=== PATIENT | male | born 1955 | race Caucasian/White ===

== ENCOUNTER 2017-01-27 06:17 | Day surgery (SDC) ==
[2017-01-27 08:37] LABS: INR 1.02; PROTIME 10.4 Seconds (9.2-11.7)
[2017-01-27 12:07] VITALS: BP 111/62
--- NOTE | 2017-01-27 15:59 | Diag Imaging Result Document ---
PROCEDURE NAME: CT GUIDED BX LIVER - 01/27/2017 CT-GUIDED LIVER BIOPSY: COMPARISON: CT chest without contrast from an outside facility dated 01/23/2017. FINDINGS: Risks, benefits, and alternatives were discussed with the patient, and informed consent was obtained. The patient was prepped and draped in sterile fashion and placed in a supine position. Local anesthesia was achieved with 1% lidocaine solution. As was seen on the recent CT chest, there are innumerable low dense hepatic lesions throughout the right and left hepatic lobes suggesting metastatic disease. Using CT guidance, an 18-gauge coaxial biopsy needle system was used to obtain four 2.3 cm core biopsies from one of the lesions in the left hepatic lobe. There were no known complications. IMPRESSION: Technically successful CT-guided liver biopsy.
== END 2017-01-27 12:20 | disposition home or self-care (01) ==
LOC: CT 06:17
PROVIDERS: ATTEND Internal Medicine
DX: C78.7 Secondary malignant neoplasm of liver and intrahepatic bile duct (principal); R93.2 Abnormal findings on diagnostic imaging of liver and biliary tract; D64.9 Anemia, unspecified; Z79.899 Other long term (current) drug therapy; Z79.51 Long term (current) use of inhaled steroids; C80.1 Malignant (primary) neoplasm, unspecified
CPT/HCPCS: 47000; 77012; 85610; 85730; 88307

== ENCOUNTER 2017-02-13 10:45 | Observation (INO) ==
--- NOTE | 2017-02-13 13:36 | CONSULTATION ---
DATE OF CONSULTATION: 02/13/2017 REFERRING PHYSICIAN: Dr. Jean Mistry. CHIEF COMPLAINT: Evaluation for lung tumor and COPD. HISTORY OF PRESENTING ILLNESS: A 62-year-old man with left lung mass in the lingula shown on chest CT scan recently and liver mets, status post liver biopsy that was inconclusive. I had a discussion with Dr. Mistry and also the pathology report also was reviewed. The report is from 01/27/2017. 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 He is an active smoker. History of pacemaker and carotid disease. Seeing in [facility] and was there 2 months ago. PAST MEDICAL HISTORY: Insomnia. 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 Active smoker. Permanent pacemaker. Coronary artery disease. PAST SURGICAL HISTORY: Liver biopsy recently. ALLERGIES: No known drug allergies. HOME MEDICATIONS: 1. Restoril. 2. Carafate. 3. Protonix. 4. Lasix. 5. Fentanyl. 6. Coreg. 7. Symbicort. 8. Xanax. 9. Advair. SOCIAL HISTORY: Smoker. He lives alone. His sister will be present during evaluation for bronchoscopy tomorrow. REVIEW OF SYSTEMS: As detailed in history of presenting illness, otherwise, noncontributory. FAMILY HISTORY: COPD. PHYSICAL EXAMINATION: Vital signs noted. Head and Neck: Trachea midline. Chest: Reduced air entry slightly. Cardiac: S1, S2. Pacemaker. Lower limb examination: No pedal edema. Abdomen: Nontender. Neurologic: Awake and communicative. LABORATORY AND INVESTIGATIONS: Recent workup from the hospital records were reviewed. Chest CT scan imaging reviewed. PFT from the office records reviewed. ASSESSMENT AND PLAN: A 62-year-old man with left lung mass, liver mets, with neuroendocrine liver masses by pathology, being evaluated for bronchoscopy and has chronic obstructive pulmonary disease. I agree with bronchodilators. We will arrange the patient for bronchoscopy as an inpatient for tomorrow morning at 10:30. Thank for the courtesy of this consultation.
[2017-02-13] MEDS ORDERED: CARAFATE LIQUID PO PRN (19:50)
[2017-02-13] MEDS ORDERED: NORCO-5 PO PRN (19:53)
[2017-02-13] MEDS ORDERED: ZOFRAN PO PRN (19:54)
[2017-02-13] MEDS ORDERED: SYMBICORT 160/4.5 MICROGM INHALER INH SCH (20:15)
[2017-02-13] MEDS: COLACE PO SCH (21:04)
[2017-02-13] MEDS: LASIX PO SCH (21:04)
[2017-02-13] MEDS: RESTORIL PO SCH ×2 (21:05→21:06)
[2017-02-13] MEDS: XANAX PO SCH (21:05)
[2017-02-13] MEDS: COREG PO SCH (21:05)
[2017-02-14] MEDS ORDERED: PROTONIX PO SCH (07:00)
[2017-02-14] MEDS ORDERED: ADVAIR INH SCH (09:00)
[2017-02-14] MEDS ORDERED: DURAGESIC 75 MICROGM/HR PATCH TD SCH (09:00)
[2017-02-14] MEDS ORDERED: EXFORGE 5/160 PO SCH (09:00)
[2017-02-14] MEDS ORDERED: EPINEPHRINE ONE (09:19)
[2017-02-14] MEDS ORDERED: XYLOCAINE 2% ONE (09:19)
[2017-02-14] MEDS ORDERED: XYLOCAINE 2% VISCOUS ONE (09:20)
[2017-02-14] MEDS ORDERED: SODIUM CHLORIDE 0.9% 20 ML ONE (09:20)
[2017-02-14] MEDS ORDERED: XYLOCAINE 2% MISC ONE (09:30)
[2017-02-14] MEDS ORDERED: EPINEPHRINE INJ ONE (10:01)
[2017-02-14] MEDS ORDERED: XYLOCAINE 2% INJ ONE (10:01)
[2017-02-14] MEDS ORDERED: VERSED ONE (10:34)
[2017-02-14] MEDS ORDERED: DIPRIVAN 1% ONE (10:35)
[2017-02-14] MEDS ORDERED: LR 1,000 ML ONE (10:46)
[2017-02-14] MEDS ORDERED: XYLOCAINE-MPF 2% ONE (10:46)
[2017-02-14] MEDS ORDERED: ANESTHESIA PB SET 88 IN 5742 ONE (10:46)
--- NOTE | 2017-02-14 10:46 | OPERATIVE NOTE ---
PROCEDURE DATE: 02/14/2017 INDICATION: Lung mass in the lingula with liver metastasis. REFERRING PHYSICIAN: Dr. Jean Mistry. PROCEDURE: Flexible bronchoscopy. DESCRIPTION OF PROCEDURE IN DETAIL: Conscious sedation administered through anesthesia and fluoroscopy scanning used for sampling. Flexible bronchoscope passed through right nostril with local anesthesia. Normal vocal cord movements. All major segments visualized. There is more than 90% blockage of the lingular segment signifying likely tumor. It is easy to ooze blood, but no significant bleeding happened. Empirically we instilled diluted epinephrine to prevent significant bleeding. We did brushings from the area in the lingula and then we did endobronchial biopsies and transbronchial biopsies, again with fluoroscopy scanning and guidance. No major bleeding was noticed by the time pulling the scope, and we did washings from all major segments and sent this for cytology and pathology. The patient tolerated the procedure well. Fluoroscopy scanning showed no pneumothorax. An official chest x-ray is requested. Dr. Mistry and waiting to call back to discuss the case. IMPRESSION: 1. Lung mass. 2. Liver metastases. 3. More than 90% of the lingula segment blocking signifying tumor. PLAN: Awaiting cytology and pathology results.
--- NOTE | 2017-02-14 10:59 | Diag Imaging Result Document ---
PROCEDURE NAME: CHEST-PORTABLE - 02/14/2017 PORTABLE CHEST X-RAY: COMPARISON: CT chest 01/23/2017. FINDINGS: Stable left-sided biventricular pacemaker. Stable pulmonary fibrosis throughout the lungs. No focal infiltrates or edema. Heart size is top normal. No pneumothorax or large effusion. There is some stable appearing chronic atelectasis in the lingula. IMPRESSION: No acute disease or complication.
[2017-02-14] MEDS: COLACE PO SCH (13:10)
[2017-02-14] MEDS: LASIX PO SCH (13:11)
[2017-02-14] MEDS: COREG PO SCH (13:11)
[2017-02-14] MEDS: XANAX PO SCH (13:11)
[2017-02-14 13:17] VITALS: BP 150/68
== END 2017-02-14 13:47 | disposition home or self-care (01) ==
LOC: DIRADM 10:45 → 3N 11:54
PROVIDERS: ADMIT Internal Medicine Hematology & Oncology; ATTEND Internal Medicine Hematology & Oncology